=== PATIENT | male | born 1960 | race Caucasian/White ===

== ENCOUNTER 2023-07-14 23:03 | Emergency (ER) | payer OTHER ==
[~2023-07-14] VITALS: Ht 182.8 cm; Wt 49.4 kg
[2023-07-15 01:36] LABS: BILIRUBIN 2+ (Negative); BLOOD 2+ (Negative); CLARITY Cloudy (Clear); COLOR Red (Yellow); GLUCOSE Negative (Negative); KETONE Negative (Negative); LEUKO ESTERASE 2+ (Negative); NITRITE Positive (Negative); SPECIFIC GRAVITY 1.025 (1.001-1.030)
[2023-07-15 01:57] LABS: BACTERIA 2+; RBC TNTC rbc/hpf (0-2); WBC 16-20 wbc/hpf (0-5)
[2023-07-15] MEDS ORDERED: CIPRO500 MG PO (03:26)
== END 2023-07-15 03:28 | disposition home or self-care (01) ==
LOC: ED 23:03
PROVIDERS: Emergency Medicine
DX: R33.9 Retention of urine, unspecified (principal); N39.0 Urinary tract infection, site not specified